=== PATIENT | female | born 1985 | race Two or more races ===

== ENCOUNTER 2023-08-21 03:08 | Emergency (ER) | payer OTHER ==
[~2023-08-21] VITALS: Ht 160 cm; Wt 85.7 kg
[2023-08-21 05:16] LABS: HEMATOCRIT 40.2 % (36.0-45.00); HEMOGLOBIN 13.6 g/dL (12.0-15.00); MEAN CELL VOLUME 90.6 fL (80.00-100.00); MEAN CORPUSCULAR HEMOGLOBIN 30.7 pg (27.00-32.0); MEAN CORPUSCULAR HGB CONC 33.9 g/dl (32.0-36.0); PLATELET COUNT 284 K/uL (150-450); RED BLOOD COUNT 4.43 M/uL (4.00-6.00)
[2023-08-21 05:50] LABS: CREATININE SERUM 0.75 mg/dL (0.55-1.02); GFR 85.58; POTASSIUM 4.17 mEq/L (3.5-5.1)
[2023-08-21 10:33] LABS: ALT/SGPT 23 U/L (12-78); AST/SGOT 16 U/L (15-37); BILIRUBIN TOTAL 0.34 mg/dL (0.3-1.2); BILIRUBIN,CONJUGATED < 0.10 mg/dL (0.0-0.2); BILIRUBIN,UNCONJUGATED 0.24 mg/dL (0.0-0.6)
== END 2023-08-21 11:32 | disposition left against medical advice (07) ==
LOC: ER 03:08
PROVIDERS: General Practice
DX: R11.10 Vomiting, unspecified (principal); R10.13 Epigastric pain